=== PATIENT | male | born 1940 | race Caucasian/White ===

== ENCOUNTER 2016-10-30 09:57 | Emergency (ER) | payer MEDICARE, OTHER ==
[2016-10-30] MEDS ORDERED: LORazepam 2 MG/ML INJ ONE (10:17)
[2016-10-30 10:18] LABS: BASOPHILS 0.4 % (0.0-2.0); EOSINOPHILS 3.9 % (0.0-6.0); EOSINOPHILS# 0.3 X 10^3uL (0.0-0.4); HEMATOCRIT 42.8 % (42.0-54.0); HEMOGLOBIN 14.5 g/dL (14.0-18.0); LYMPHOCYTES 30.1 % (20.0-40.0); LYMPHOCYTES# 2.3 X 10^3uL (0.8-3.8); MEAN CORPUS. HGB CONCENTRATION 33.8 g/dL (32.0-36.0); MEAN CORPUSCULAR HEMOGLOBIN 30.8 pg (29.0-35.0); MEAN PLATELET VOLUME 8.3 fL (7.4-10.4); MONOCYTES 10.9 % (2.0-10.0); MONOCYTES# 0.8 X 10^3uL (0.2-1.0); NEUTROPHILS 54.7 % (54.0-75.0); NEUTROPHILS# 4.3 X 10^3uL (2.6-6.7); PLATELET COUNT 208 X 10^3uL (130-440); RED CELL DISTRIBUTION WIDTH 13.1 % (11.5-14.5); WHITE BLOOD COUNT 7.7 X 10^3uL (3.9-10.7)
[2016-10-30] MEDS ORDERED: ONDANSETRON ODT 4 MG TAB.RAPDIS ONE (10:26)
[2016-10-30 10:29] LABS: BLOOD UREA NITROGEN 15 mg/dL (9-20); CALCIUM 9.3 mg/dL (8.4-10.2); CHLORIDE 103 mmol/L (98-107); CREATININE 1.1 mg/dL (0.7-1.3); EST GLOMERULAR FILTRATION RATE > 60 mL/min; GLUCOSE 164 mg/dL (70-100); MAGNESIUM 1.8 mg/dL (1.6-2.3); POTASSIUM 3.8 mmol/L (3.5-5.1); SODIUM 139 mmol/L (137-145)
[2016-10-30 10:41] LABS: TROPONIN I < 0.012 ng/mL (0.00-0.034)
--- NOTE | 2016-10-30 12:53 | ER NURSING DOCUMENTATION ---
Nurse's Notes [facility] Name:Kodak Marr Age:75 yrs Sex:Male :1940 Arrival Date:10/30/2016 Time:09:57 BedTrauma-B Private MD: Diagnosis:Atypical Chest Pain;Adjustment Disorder w/Anxiety Presentation: 10/30 10:05 Presenting complaint: Patient states: pt had an episode of feeling flushed, SOB and st anxious. Transition of care: Home. 10:05 Method Of Arrival: Private Vehicle st 10:06 Acuity: CHAS 2 st Triage Assessment: 10:16 General: Appears uncomfortable, Behavior is agitated, anxious, cooperative. Pain: st Denies pain. Neuro: Level of Consciousness is awake, alert, Oriented to person, place, time, event, Town Manager are equal bilaterally Moves all extremities. Cardiovascular: Capillary refill < 3 seconds Heart tones present Reports feeling flushed, SOB and anious. Respiratory: Airway is patent Respiratory effort is even, unlabored, Respiratory pattern is regular, symmetrical. GI: Abdomen is non- distended Abd is soft and non tender X 4 quads. Reports nausea. Derm: No deficits noted. Historical: - Allergies: No known drug Allergies; - Home Meds: 1. new anti depresant 2. Simvastatin Oral 3. clopidogrel oral 4. losartan oral 5. Ranitidine Oral - PMHx: cardiac stent; - Tetanus: < 10 years. - Ebola Screening: : Patient denies exposure to infectious person. Patient denies travel to an Ebola-affected area in the 21 days before illness onset. . - Social history: Smoking status: Patient states was never smoker of tobacco. Patient uses alcohol occasionally. Patient/guardian denies using marijuana. Screenin:18 Infectious Disease Risk None. Abuse screen: Denies threats or abuse. Denies injuries st from another. Nutritional screening: No deficits noted. Assessment: 10:19 General: pt lost his brother a short time ago.. st 10:29 General: pt states he is feeling better.. st Vital Signs: 10:17 BP 181 / 84; Pulse 94; Resp 14; Pulse Ox 93% on R/A; Pain 0/10; st 10:30 BP 141 / 70 (auto/); st 10:32 Pulse 72 MON; Resp 17; Pulse Ox 90% ; st 11:00 BP 137 / 65 (auto/); st 11:02 Pulse 70 MON; Resp 17; Pulse Ox 89% ; st 11:30 BP 136 / 60 (auto/); st 11:32 Pulse 73 MON; Resp 19; Pulse Ox 90% ; st 12:39 BP 161 / 62; Pulse 85; Resp 16; Pulse Ox 93% on R/A; Pain 0/10; ED Course: 10:03 Patient arrived in ED. lm3 10:04 Bolivar Parry MD is Attending Physician. me 10:06 Tamar Sneed RN is Primary Nurse. st 10:[address] 10:08 EKG done. (by ED staff). Reviewed by Bolivar Parry MD. em3 12:51 EKG attached Administered Medications: 10:07 Drug: Ativan 1 mg; Route: IVP; Site: right hand; st 10:29 Follow up: Response: Anxiety decreased st Outcome: 12:25 Discharge ordered by . me 12:51 Discharged to home ambulatory, with significant other. 12:51 Condition: improved 12:51 Discharge Assessment: Patient awake, alert and oriented x 3. No cognitive and/or functional deficits noted. Patient verbalized understanding of disposition instructions. 12:51 Discharge instructions given to patient, significant other, Instructed on discharge instructions, follow up and referral plans. Demonstrated understanding of instructions. 12:51 IV D/Selvin 12:52 Patient left the ED. Signatures: Tamar nSeed RN RN st Chew, Scott, MD MD sc Meiklejohn, Kevin em3 Mouna Good Aniya Marquez 3
--- NOTE | 2016-10-30 12:53 | ER PHYSICIAN DOCUMENTATION ---
Physician Documentation [facility] Name:Kodak Marr Age:75 yrs Sex:Male :1940 Arrival Date:10/30/2016 Time:09:57 BedTrauma-B Private MD: Bolivar Williamson Disposition: 10/30/16 12:25 Discharged to Home/Self Care. Impression: Atypical Chest Pain, Adjustment Disorder w/Anxiety. - Condition is Good. - Discharge Instructions: ADJUSTMENT DISORDER, CHEST PAIN Atypical - CHEST PAIN, Uncertain Cause. - Medical Reconciliation form form. - Follow up: Private Physician; When: 1 week; Reason: Continuance of care. - Problem is new. - Symptoms have improved. HPI: 10/30 10:04 This 75 yrs old Male presents to ER with complaints of anxiety. sc 10:04 The patient presents to the emergency department with anxiety. Onset: The sc symptom(s)/episode began/occurred just prior to arrival. Past psychiatric history: the patient's last psychiatric treatment was last week, started on antidepressant last week, suddenly felt anxious today with warm flushing sensation starting at hips and moving up and down to toes and head.. Associated signs and symptoms: The patient has no apparent associated signs or symptoms. [place], nausea per EMS resolved by arrival. 10:30 Patients brother two weeks ago.. sc Historical: - Allergies: No known drug Allergies; - Home Meds: 1. new anti depresant 2. Simvastatin Oral 3. clopidogrel oral 4. losartan oral 5. Ranitidine Oral - PMHx: cardiac stent; - Tetanus: < 10 years. - Ebola Screening: : Patient denies exposure to infectious person. Patient denies travel to an Ebola-affected area in the 21 days before illness onset. . - Social history: Smoking status: Patient states was never smoker of tobacco. Patient uses alcohol occasionally. Patient/guardian denies using marijuana. ROS: 10:31 Constitutional: Negative for fever, chills, and weight loss. sc Eyes: Negative for injury, pain, redness, and discharge. ENT: Negative for injury, pain, and discharge. Neck: Negative for injury, pain, and swelling. Cardiovascular: Negative for chest pain, palpitations, and edema. Respiratory: Negative for shortness of breath, cough, wheezing, and pleuritic chest pain. Abdomen/GI: Negative for abdominal pain, nausea, vomiting, diarrhea, and constipation. Back: Negative for injury and pain. MS/Extremity: Negative for injury and deformity. Skin: Negative for injury, rash, and discoloration. 10:31 Neuro: Negative for headache, weakness, numbness, tingling, and seizure. ri 10:31 Psych: Positive for anxiety, depression, brother two weeks ago.. Exam: Head/Face: Normocephalic, atraumatic. Eyes: Pupils equal round and reactive to light, extra-ocular motions intact. Lids and lashes normal. Conjunctiva and sclera are non-icteric and not injected. Cornea within normal limits. Periorbital areas with no swelling, redness, or edema. ENT: Nares patent. No nasal discharge, no septal abnormalities noted. Tympanic membranes are normal and external auditory canals are clear. Oropharynx with no redness, swelling, or masses, exudates, or evidence of obstruction, uvula midline. Mucous membranes moist. Neck: Trachea midline, no thyromegaly or masses palpated, and no cervical lymphadenopathy. Supple, full range of motion without nuchal rigidity, or vertebral point tenderness. No meningismus. Chest/axilla: Normal chest wall appearance and motion. Nontender with no deformity. No lesions are appreciated. Cardiovascular: Regular rate and rhythm with a normal S1 and S2. No gallops, murmurs, or rubs. Normal PMI, no JVD. No pulse deficits. Respiratory: Lungs have equal breath sounds bilaterally, clear to auscultation and percussion. No rales, rhonchi or wheezes noted. No increased work of breathing, no retractions or nasal flaring. Abdomen/GI: Soft, non-tender, with normal bowel sounds. No distension or tympany. No guarding or rebound. No evidence of tenderness throughout. Back: No spinal tenderness. No costovertebral tenderness. Full range of motion. Skin: Warm, dry with normal turgor. Normal color with no rashes, no lesions, and no evidence of cellulitis. 10:31 Neuro: Awake and alert, GCS 15, oriented to person, place, time, and situation. ri Cranial nerves II-XII grossly intact. Motor strength 5/5 in all extremities. Sensory grossly intact. Cerebellar exam normal. Normal gait. 10:31 Constitutional: The patient appears restless. 10:31 Psych: Behavior/mood is pleasant, cooperative, anxious, Affect is calm, Oriented to person, place, time, Patient has no thoughts/intents to harm self or others. Judgement / Insight is normal. Vital Signs: 10:17 BP 181 / 84; Pulse 94; Resp 14; Pulse Ox 93% on R/A; Pain 0/10; st 10:30 BP 141 / 70 (auto/); st 10:32 Pulse 72 MON; Resp 17; Pulse Ox 90% ; st 11:00 BP 137 / 65 (auto/); st 11:02 Pulse 70 MON; Resp 17; Pulse Ox 89% ; st 11:30 BP 136 / 60 (auto/); st 11:32 Pulse 73 MON; Resp 19; Pulse Ox 90% ; st 12:39 BP 161 / 62; Pulse 85; Resp 16; Pulse Ox 93% on R/A; Pain 0/10; rh MDM: 10:08 Patient medically screened. ri 10:32 Differential diagnosis: depression, anxiety attack vs acute illness or cardiac cause. ri Data reviewed: vital signs, nurses notes, lab test result(s), EKG, and as a result, I will continue to observe the patient. 10:48 ECG:. ri 12:19 ED course: old EKG with LBBB. ri 12:51 EKG attached 10/30 10:21 Order name: CBC AUTO DIF, MDIF/RMOR IF IND; Complete Time: 10:48 EDMS 10/30 10:48 Interpretation: Normal: Normal. ri 10/30 10:42 Order name: BASIC METABOLIC PANEL; Complete Time: 10:48 EDMS 10/30 10:48 Interpretation: Normal. ri 10/30 10:42 Order name: MAGNESIUM; Complete Time: 10:48 EDMS 10/30 10:48 Interpretation: Normal. ri 10/30 10:42 Order name: TROPONIN I; Complete Time: 10:48 EDMS 10/30 10:48 Interpretation: Normal. ri 10/30 10:07 Order name: EKG - 12 Lead; Complete Time: 10:20 st EC:48 Rate is 75 beats/min. Rhythm is regular, Normal Sinus Rhythm with Left bundle branch sc block. QRS [place] is Normal. [place] interval is normal. QRS interval is prolonged. QT interval is normal. No Q waves. T waves are Normal. No ST changes noted. Clinical impression: No evidence of ischemia. Interpreted by me. Reviewed by me. Dispensed Medications: 10:07 Drug: Ativan 1 mg; Route: IVP; Site: right hand; st 10:29 Follow up: Response: Anxiety decreased st Signatures: Tamar Sneed, RN RN Bolivar Blackmon MD MD sc Hofsess, Mouna rh
== END 2016-10-30 12:52 | disposition home or self-care (01) ==
LOC: ER 09:57
DX: R07.89 Other chest pain (principal); F43.22 Adjustment disorder with anxiety; I44.7 Left bundle-branch block, unspecified; Z95.5 Presence of coronary angioplasty implant and graft; Z79.899 Other long term (current) drug therapy
CPT/HCPCS: 80048; 83735; 84484; 85025; 93005; 93010; 96374; 99283; 99285; A0425; A0427; J2060